=== PATIENT | male | born 1995 | race African-American/Black ===

== ENCOUNTER 2024-11-11 21:34 | Emergency (ER) | payer OTHER, SELFPAY ==
[2024-11-11 21:36] VITALS: BP 131/67; PULSE 69; RESP 16; TEMP 36.4; O2SAT 100
[2024-11-12] MEDS: FLUORESCEIN SOD 1 MG/STRIP (01:09)
[2024-11-12] MEDS: TETRACAINE HCL 0.5% OPHTH SOLN 4 ML BTL 1 DROP (01:10)
--- NOTE | 2024-11-12 01:29 | ED_ITS ---
HPI - Eye Problem General Chief complaint: Eye Problems Stated complaint: Right eye swelling/redness/pain Time Seen by Provider: 11/12/24 00:36 Source: patient Mode of arrival: ambulatory Limitations: no limitations History of Present Illness HPI Narrative: Patient is a 29-year-old male who presents the ED with report of right eye redness. Patient reports having redness to his right eye for the past 1 week. States he has had discomfort and a burning sensation throughout the right eye. He reports having thick drainage from his eye earlier this week, states it has been more watery over the last couple of days. Reports photophobia today. Reports slight blurry vision related to the drainage. Denies vision loss. He does not wear contacts or glasses. Denies itching. Denies fevers. Denies redness or swelling surrounding eye. Related Data Allergies Allergy/AdvReac Type Severity Reaction Status Date / Time No Known Allergies Allergy Verified 11/11/24 21:35 Review of Systems Review of Systems: All systems reviewed & are unremarkable except as noted in HPI. All systems reviewed & are unremarkable except as noted in HPI and below Exam Narrative: GENERAL: Well appearing, well-nourished, non-toxic, in no acute distress. HEAD: Normocephalic, atraumatic. EYES: PERRL/EOMI, L conjunctiva clear. R conjunctival injection. No pain with extraocular movements. Full range of motion of extraocular movements. No chemosis or proptosis. No obvious foreign body. Serous drainage from eye. No haziness of the cornea. No surrounding periorbital swelling or erythema. RESPIRATORY: Airway patent, respirations nonlabored. CARDIOVASCULAR: Regular rate and rhythm MUSCULOSKELETAL: Moves all extremities. No gross deformities. SKIN: Warm, dry, normal color. NEURO: A&O X3. Speech clear. PSYCHIATRIC: Appropriate mood and affect. Normal interaction. Course Vital Signs Vital signs: Vital Signs Temperature 97.6 F 11/11/24 21:36 Pulse Rate 69 11/11/24 21:36 Respiratory Rate 16 11/11/24 21:36 Blood Pressure 131/67 11/11/24 21:36 Pulse Oximetry 100 11/11/24 21:36 Oxygen Delivery Room Air 11/11/24 21:36 Temperature 97.6 F 11/11/24 21:36 Pulse Rate 69 11/11/24 21:36 Respiratory Rate 16 11/11/24 21:36 Blood Pressure 131/67 11/11/24 21:36 Pulse Oximetry 100 11/11/24 21:36 Oxygen Delivery Room Air 11/11/24 21:36 MDM - Eye Problem MDM Narrative Medical decision making narrative: Eyes PERRLA, EOMI. No evidence of orbital or periorbital cellulitis. Visual acuity intact, very minimally decreased to right eye. Patient does not wear glasses or contacts. He is denying any vision loss. Feels blurry vision is mostly related to drainage. No foreign body noted on exam. Fluorescein staining with Wood's lamp examination was performed and no obvious corneal or conjunctival abrasion was seen. Intra-ocular pressures were evaluated and n ormal, 8. Feel symptoms are most consistent with conjunctivitis. Will treat and cover with antibiotics. Started on ofloxacin in the ED. Prescription sent to pharmacy. Advised patient to follow closely with Ophthalmology for further evaluation. Will give referral. Discussed strict return precautions should symptoms continue or worsen despite antibiotic therapy. Patient voiced understanding. Discharged in stable condition. Medical Records Attestation: I reviewed the patient's medical records. Discharge Plan Discharge Clinical Impression: Conjunctivitis Qualifiers: Conjunctivitis type: unspecified Laterality: right Qualified Code(s): H10.9 - Unspecified conjunctivitis Patient Disposition: Home, Self-Care Condition: Stable Instructions: Antibiotic Form, Corneal Abrasion (ED), Conjunctivitis (ED) Additional Instructions: Utilize antibiotic eyedrops as prescribed over the next 5-7 days. Follow-up with Ophthalmology for further evaluation. Wash hands frequently. Avoid touching eyes. Return to ED if you experience worsening or severe symptoms, vision changes or vision loss, severe pain, redness or swelling surrounding eye, fevers, or any other symptoms of concern. [facility]: [phone] Patient Language: Vietnamese Prescriptions: New ofloxacin 0.3 % drops 2 drp EACH EYE QID Qty: 5 0RF Follow-up/Referrals: Jade Sal [Outside] Jade Duron [Outside] PHYSICIAN,[employer] [Primary Care Provider] - Time of Disposition: 01:39
[2024-11-12] MEDS: OFLOXACIN 0.3% OPHTH SOLN 5 ML BTL 1 DROP RIGHT EYE (01:44)
[2024-11-12 01:47] VITALS: BP 120/76; PULSE 76; RESP 16; TEMP 36.6; O2SAT 98
== END 2024-11-12 01:48 | disposition home or self-care (01) ==
PROVIDERS: Emergency Provider Physician Assistant
DX: H10.9 Unspecified conjunctivitis (principal)
CPT/HCPCS: 99283; A9270